=== PATIENT | female | born 1965 | race African-American/Black ===

== ENCOUNTER 2017-07-09 00:16 | Emergency (ER) | payer OTHER ==
[~2017-07-09] VITALS: Ht 175.3 cm; Wt 97.0 kg
[2017-07-09] MEDS ORDERED: SODIUM CHLORIDE 0.9% 1,000 ML IV ONE (03:38)
[2017-07-09 06:00] VITALS: BP 104/72
== END 2017-07-09 06:02 | disposition home or self-care (01) ==
LOC: ER 00:16
DX: J40 Bronchitis, not specified as acute or chronic (principal); Z90.710 Acquired absence of both cervix and uterus; Z88.5 Allergy status to narcotic agent; Z88.6 Allergy status to analgesic agent
CPT/HCPCS: 71010; 81025; 99284; J7030; Z7610

== ENCOUNTER 2017-11-21 18:50 | Emergency (ER) | payer MEDICAID, OTHER ==
[~2017-11-21] VITALS: Ht 167.6 cm; Wt 97.0 kg
[2017-11-21 18:57] VITALS: BP 99/75
== END 2017-11-21 23:15 | disposition left against medical advice (07) ==
LOC: ER 18:50
DX: Z53.21 Procedure and treatment not carried out due to patient leaving prior to being seen by health care provider (principal)

== ENCOUNTER 2018-12-06 22:55 | Emergency (ER) | payer MEDICAID ==
[~2018-12-06] VITALS: Ht 167.6 cm; Wt 102.0 kg
[2018-12-07] MEDS ORDERED: IBUPROFEN 600MG TABLET PO ONE (01:45)
[2018-12-07 01:46] VITALS: BP 121/69
== END 2018-12-07 02:27 | disposition home or self-care (01) ==
LOC: ER 22:55
DX: M25.572 Pain in left ankle and joints of left foot (principal); Z88.5 Allergy status to narcotic agent; Z88.6 Allergy status to analgesic agent; Z90.710 Acquired absence of both cervix and uterus
CPT/HCPCS: 73610; 99283

== ENCOUNTER 2020-10-23 08:10 | Inpatient (IN) | payer MEDICAID ==
[~2020-10-23] VITALS: Ht 175.3 cm; Wt 91.0 kg
[2020-10-23] MEDS ORDERED: ONDANSETRON HCL 4MG/2ML INJ IV ONE (08:45)
[2020-10-23 09:44] LABS: CHLORIDE 106 mEq/L (98-107)
[2020-10-23 09:48] LABS: ETHANOL BLOOD < 10 mg/dL
[2020-10-23 09:52] LABS: CREATINE KINASE 376 IU/L (26-192)
[2020-10-23 09:56] LABS: BASOPHILS % 0.7 % (0.0-2.0); EOSINOPHILS % 1.8 % (0.0-5.0); HEMATOCRIT. 37.7 % (36.0-48.0); HEMOGLOBIN. 12.7 g/dL (12.0-16.0); LYMPHOCYTES % 20.8 % (20.0-50.0); MEAN CORPUSCULAR HEMOGLOBIN 28.6 pg (28.0-32.0); MEAN CORPUSCULAR VOLUME 85.3 fL (81.0-99.0); MEAN PLATELET VOLUME 7.4 fl (7.4-10.4); MONOCYTES % 7.7 % (2.0-8.0); PLATELET 314 x1000/uL (130-400); RED BLOOD CELL COUNT 4.43 mill/uL (4.2-5.4); RED CELL DISTRIBUTION WIDTH 13.1 % (11.6-14.6)
[2020-10-23] MEDS ORDERED: SODIUM CHLORIDE 0.9% 1000ML BAG (SEPSIS BOLUS) IV ONE (10:00)
[2020-10-23] MEDS ORDERED: MORPHINE SULFATE 2 MG/ML CPJ (NOT FOR IM USE) IV ONE (12:45)
[2020-10-23] MEDS ORDERED: IOHEXOL-350 100 ML BOTTLE ONE (13:35)
[2020-10-23 14:04] LABS: CLARITY URINE CLEAR (CLEAR); COLOR URINE YELLOW (YELLOW); KETONES URINE NEGATIVE (NEGATIVE); LEUKOCYTE ESTERASE URINE NEGATIVE (NEGATIVE); NITRITE URINE NEGATIVE (NEGATIVE); OCCULT BLOOD URINE NEGATIVE (NEGATIVE); PH URINE 8.5 (4.5-8.0); PROTEIN URINE NEGATIVE (NEGATIVE); SPECIFIC GRAVITY URINE 1.065 (1.005-1.030); UROBILINOGEN URINE 0.2 E.U./dL (0.2-1.0)
[2020-10-23 14:22] LABS: *BENZODIAZEPINES SCREEN URINE NEGATIVE (NEGATIVE)
[2020-10-23 14:23] LABS: *COCAINE SCREEN URINE NEGATIVE (NEGATIVE); CANNABINOID URINE SCREEN NEGATIVE (NEGATIVE); METHADONE URINE SCREEN NEGATIVE (NEGATIVE); OPIATES URINE SCREEN NEGATIVE (NEGATIVE); PHENCYCLIDINE URINE SCREEN NEGATIVE (NEGATIVE)
[2020-10-23 14:25] LABS: *BARBITURATES SCREEN URINE NEGATIVE (NEGATIVE)
[2020-10-23 14:26] LABS: *AMPHETAMINES SCREEN URINE NEGATIVE (NEGATIVE)
[2020-10-24] MEDS ORDERED: ACETAMINOPHEN 325MG TABLET PO ONE (01:15)
[2020-10-24 05:48] VITALS: BP 113/76
[2020-10-24] MEDS ORDERED: SODIUM CHLORIDE 0.9% 1,000 ML IV SCH (06:30)
[2020-10-24] MEDS ORDERED: ACETAMINOPHEN 325MG TABLET PO PRN (06:30)
[2020-10-24] MEDS ORDERED: IPRATROPIUM/ALBUTEROL 0.5-3(2.5)MG/3ML NEB HHN PRN (06:45)
[2020-10-24 08:00] VITALS: BP 117/86
[2020-10-24] MEDS ORDERED: ASPIRIN 81MG TABLET PO SCH (09:00)
== END 2020-10-24 09:45 | disposition home or self-care (01) | DRG 52 ==
LOC: ER 08:10 → MICUSO 14:25 → EDBEDREQSVC 14:31 → EDBEDREQTM 14:31 → EDBEDREQ 14:31 → 6EST 10-24 03:21
PROVIDERS: ADMIT Internal Medicine; ATTEND Internal Medicine
DX: G93.41 Metabolic encephalopathy (principal); E86.0 Dehydration; E87.2 Acidosis; R55 Syncope and collapse; I10 Essential (primary) hypertension; J45.909 Unspecified asthma, uncomplicated; Z20.828 Contact with and (suspected) exposure to other viral communicable diseases; Z90.710 Acquired absence of both cervix and uterus; Z88.8 Allergy status to other drugs, medicaments and biological substances
CPT/HCPCS: 36415; 70496; 70498; 71045; 80053; 80305; 80320; 81003; 82140; 82550; 83605; 83880; 84443; 84484; 85025; 93005; 96374; 99291; C9803; J2270; J2405; L0172; Q9967; U0003; G0480